=== PATIENT | female | born 1995 | race Caucasian/White ===

== ENCOUNTER 2018-10-08 10:15 | Emergency (ER) | payer OTHER ==
[2018-10-08 12:03] VITALS: BP 124/62
--- NOTE | 2018-10-08 12:05 | UC ---
Complaint Female HPI - HPI Summary HPI Summary: 23 y/o female presents to the urgent care c/o frequency and burning on urination w/ lower back pain for the past 2 days. Pt reports she took Metronidazole PO and Pyridium she had left over yesterday to alleviate symptoms. Pt states she got her period yesterday. Pain is 8/10 with urination. Pt denies fever, flnak pain, abdominal pain, SOB, chest pain, SHERMAN, N/V/D, vaginal discharge. - History Of Current Complaint Chief Complaint: UCBackPain Stated Complaint: BACK PAIN CHILLS Time Seen by Provider: 10/08/18 11:45 Hx Obtained From: Patient Hx Last Menstrual Period: yesterday ?: No Onset/Duration: Gradual Onset, Lasting Days - 2 days, Still Present, Worse Since - today Timing: Intermittent Severity Initially: Mild Severity Currently: Moderate Pain Intensity: 8 Character: Burning Aggravating Factor(s): Urination, Other - lower back pain Alleviating Factor(s): Meds - took Azo and Metronidazole PO yesterday Associated Signs And Symptoms: Positive: Back Pain - lower back pain. Negative : Fever, Vaginal Discharge, Nausea, Vomiting(# Of Episodes =), Genital Swelling , Genital Blisters - Risk Factors Ectopic Risk Factor: Negative Ovarian Torsion Risk Factor: Negative - Allergies/Home Medications Allergies/Adverse Reactions: Allergies Allergy/AdvReac Type Severity Reaction Status Date / Time No Known Allergies Allergy Verified 07/28/16 19:53 Home Medications: Home Medications Lo Ogestrel Oc 10/08/18 [History] PMH/Surg Hx/FS Hx/Imm Hx Previously Healthy: Yes - Pt denies PMHX - Surgical History Surgical History: None - Family History Known Family History: Positive: None - Pt denies FmHX, Other - No FHx kidney stones - Social History Occupation: Student Lives: With Family Alcohol Use: Occasionally Substance Use Type: None Smoking Status (MU): Former Smoker Review of Systems All Other Systems Reviewed And Are Negative: Yes Constitutional: Positive: Negative Skin: Positive: Negative Eyes: Positive: Negative ENT: Positive: Negative Respiratory: Positive: Negative Cardiovascular: Positive: Negative Gastrointestinal: Positive: Negative Genitourinary: Positive: Dysuria, Frequency, Urgency Motor: Positive: Negative Neurovascular: Positive: Negative Musculoskeletal: Positive: Other: - lower back pain Neurological: Positive: Negative Psychological: Positive: Negative Is Patient Immunocompromised?: No Physical Exam - Summary Physical Exam Summary: VITAL SIGNS: Reviewed. GENERAL: Patient is a well developed and nourished female who is sitting comfortable in the examining table. Patient is not in any acute respiratory distress. HEAD AND FACE: No signs of trauma. No ecchymosis, hematomas or skull depressions. No sinus tenderness. EYES: PERRLA, EOMI x 2, No injected conjunctiva, clear watery eyes, no nystagmus. No photophobia. EARS: Hearing grossly intact. Ear canals and tympanic membranes are within normal limits. MOUTH: pharynx with no erythema, no exudates,no palatal petechiae. no B/L tonsillar enlargement Uvula in midline. NECK: Supple, trachea is midline, no lymphadenopathy, no JVD, no carotid bruit, no c-spine tenderness, neck with full ROM. CHEST: Symmetric, no tenderness at palpation LUNGS: Clear to auscultation bilaterally. No wheezing or crackles. CVS: Regular rate and rhythm, S1 and S2 present, no murmurs or gallops appreciated. ABDOMEN: Soft, non-tender. No signs of distention. No rebound no guarding, and no masses palpated. Bowel sounds are normal. BACK:no scoliosis or lesions, non tender to palpation, No B/L CVA tenderness EXTREMITIES: FROM in all major joints, no edema, no cyanosis or clubbing. NEURO: Alert and oriented x 3. No acute neurological deficits. Speech is normal and follows commands. SKIN: Dry and warm Triage Information Reviewed: Yes Vital Signs: Initial Vital Signs Temp 98 F 10/08/18 11:53 Pulse 102 10/08/18 11:53 Resp 18 10/08/18 11:53 BP 124/62 10/08/18 11:53 Pulse Ox 100 10/08/18 11:53 Complaint Female Dx - Course Course Of Treatment: 23 y/o female presents to the urgent care c/o frequency and burning on urination w/ lower back pain for the past 2 days. Pt reports she took Metronidazole PO and Pyridium she had left over yesterday to alleviate symptoms. Pt states she got her period yesterday. Pain is 8/10 with urination. Pt denies fever, flnak pain, abdominal pain, SOB, chest pain, SHERMAN, N/V/D, vaginal discharge.Hx obtained. PE:WNL, No B/L CVA tenderness on palaption. Pt will be sent for Urine culture to the lab since Pt already took Azo. test: negative. Pt will be Tx as UTI w/ Ciprofloxacin PO and Pyridium PO to alleviate symptoms. Pt will be notified of results. Pt advised to increase hydrations and if she develops fever or flank pain despite taking antibiotics she should go to the ER for further management. Pt understood and agreed w/ plan of care. - Differential Dx/Diagnosis Differential Diagnosis/HQI/PQRI: Cervicitis, , Renal Colic, Ureteral Stone, Urinary Tract Infection Provider Diagnosis: UTI (urinary tract infection), Dysuria Discharge - Sign-Out/Discharge Documenting (check all that apply): Patient Departure - D/C home All imaging exams completed and their final reports reviewed: No Studies - Discharge Plan Condition: Stable Disposition: HOME Prescriptions: Ciprofloxacin TAB* [Cipro 500 MG TAB*] 500 mg PO BID #14 tab Phenazopyridine TAB* [Pyridium 100 mg TAB*] 100 mg PO TID #6 tab Patient Education Materials: Urinary Tract Infection in Women (ED) Referrals: Isaac Gonzalez [Primary Care Provider] - 3 Days Additional Instructions: 1- Please take Ciprofloxacin PO x 7 days. Pyridium 100 mg PO TID x 2 days to alleviate urinary symptoms. Increase increase fluid intake. drink cranberry juice. 2- Since you took Azo tabs Urine was sent for culture if any abnormality, you will be notified for further treatment. You will be treated prophylactically for UTI 3-If symptoms do not improve please return to the urgent care or f/u with PCP in 3 days. 4- If you develop fever, severe flank pain despite taking antibiotics please go immediately to the ER for further management - Billing Disposition and Condition Condition: STABLE Disposition: Home
[2018-10-08] MEDS: Ketorolac INJ* 30 MG/ML 1 ML VIAL IM ONE (12:19)
== END 2018-10-08 12:53 | disposition home or self-care (01) ==
LOC: UCCORT 10:15
DX: N39.0 Urinary tract infection, site not specified (principal); B96.20 Unspecified Escherichia coli [E. coli] as the cause of diseases classified elsewhere; R30.0 Dysuria; Z20.828 Contact with and (suspected) exposure to other viral communicable diseases; Z87.891 Personal history of nicotine dependence
CPT/HCPCS: 84702; 87077; 87086; 87186; 96372; 99212; G0463; J1885

== ENCOUNTER 2018-12-13 07:33 | Emergency (ER) | payer OTHER ==
[2018-12-13 07:52] VITALS: BP 115/64
--- NOTE | 2018-12-13 08:02 | UC ---
Ear Complaint HPI - HPI Summary HPI Summary: 23-year-old female presents with onset of right ear pain this morning. Associated with to 3 days of mild nasal congestion and runny nose. Denies fever , chills, tinnitus, vertigo, drainage, sore throat, or cough. - History of Current Complaint Chief Complaint: UCEar Stated Complaint: RIGHT EAR CONCERN Time Seen by Provider: 12/13/18 08:00 Hx Obtained From: Patient Hx Last Menstrual Period: 11/29/18 Pain Intensity: 3 - Allergies/Home Medications Allergies/Adverse Reactions: Allergies Allergy/AdvReac Type Severity Reaction Status Date / Time No Known Allergies Allergy Verified 12/13/18 07:52 PMH/Surg Hx/FS Hx/Imm Hx Previously Healthy: Yes - Denies significant PMH - Surgical History Surgical History: None - Family History Known Family History: Positive: Non-Contributory - Social History Occupation: Employed Full-time Lives: With Family Alcohol Use: Occasionally Substance Use Type: None Smoking Status (MU): Former Smoker Review of Systems All Other Systems Reviewed And Are Negative: Yes Constitutional: Negative: Fever, Chills Skin: Negative: Rash Eyes: Negative: Drainage, Eye Redness ENT: Positive: Ear Ache, Nasal Discharge, Sinus Congestion. Negative: Sore Throat, Sinus Pain/Tenderness Respiratory: Negative: Shortness Of Breath, Cough Cardiovascular: Negative: Palpitations, Chest Pain Gastrointestinal: Negative: Abdominal Pain, Vomiting, Diarrhea, Nausea Genitourinary: Positive: Negative Musculoskeletal: Positive: Negative Neurological: Positive: Negative Is Patient Immunocompromised?: No Physical Exam - Summary Physical Exam Summary: GENERAL APPEARANCE: Well developed, well nourished, alert and cooperative, and appears to be in no acute distress. EYES: Conjunctiva clear. No drainage. Vision is grossly intact. EARS: External auditory canals clear. Left TM opaque with good cone of light. Right TM erythematous with effusion. Hearing grossly intact. NOSE: No nasal discharge. THROAT: Pharynx normal. No tonsilar inflammation, swelling, exudate, or lesions. Uvula midline. Oral cavity normal. Teeth and gingiva in good general condition. NECK: Neck supple, non-tender without lymphadenopathy. CARDIAC: Normal S1 and S2. No S3, S4 or murmurs. Rhythm is regular. There is no peripheral edema, cyanosis or pallor. Extremities are warm and well perfused. Capillary refill is less than 2 seconds. Peripheral pulses intact. LUNGS: Clear to auscultation without rales, rhonchi, wheezing or diminished breath sounds. ABDOMEN: Positive bowel sounds. Soft, nondistended, nontender. No guarding or rebound. No masses or hepatosplenomegally. MUSKULOSKELETAL: ROM intact to all extremities. No joint erythema or tenderness. Normal muscular development. Normal gait. SKIN: Skin normal color, texture and turgor with no lesions or eruptions. Triage Information Reviewed: Yes Vital Signs: Initial Vital Signs Temp 97.2 F 12/13/18 07:50 Pulse 78 12/13/18 07:50 Resp 18 12/13/18 07:50 BP 115/64 12/13/18 07:50 Pulse Ox 99 12/13/18 07:50 Vital Signs Reviewed: Yes Ear Complaint Course/Dx - Course Course Of Treatment: 23-year-old female presents with onset of right ear pain this morning. Associated with to 3 days of mild nasal congestion and runny nose. Denies fever , chills, tinnitus, vertigo, drainage, sore throat, or cough. Afebrile. Vital signs stable. Exam was remarkable for right TM erythema with effusion. Will treat for right otitis media with effusion with amoxicillin 875 mg twice a day 10 days. She is to follow-up with a primary care provider in 2 weeks for recheck of the ear, sooner if symptoms do not improve. Despite her guidance and warning symptoms reviewed with the patient. Verbalizes understanding agrees with plan of care. - Differential Dx/Diagnosis Differential Diagnosis/HQI/PQRI: Otitis Externa, Otitis Media, Perforated TM, URI Provider Diagnosis: Right otitis media with effusion Discharge - Sign-Out/Discharge Documenting (check all that apply): Patient Departure All imaging exams completed and their final reports reviewed: No Studies - Discharge Plan Condition: Stable Disposition: HOME Prescriptions: Amoxicillin PO (*) [Amoxicillin 875 MG (*)] 875 mg PO BID #20 tab Patient Education Materials: Earache (ED) Referrals: Isaac Gonzalez [Primary Care Provider] - 2 Weeks Additional Instructions: Take amoxicillin 875 mg 1 cap twice a day with food for 10 days to treat your right ear infection. Use acetaminophen (Tylenol) or ibuprofen (Advil, Motrin) according to directions as needed for pain. Follow up with your primary care provider in 2 weeks to have the ear rechecked, sooner if no improvement in symptoms. Seek immediate medical attention if you develop fever greater than 100.5 F, you have pain not managed with pain medication, drainage or bleeding from the ear, loss of hearing, or any worsening of symptoms. - Billing Disposition and Condition Condition: STABLE Disposition: Home
== END 2018-12-13 08:13 | disposition home or self-care (01) ==
LOC: UCCORT 07:33
DX: H65.91 Unspecified nonsuppurative otitis media, right ear (principal); R09.81 Nasal congestion; R09.89 Other specified symptoms and signs involving the circulatory and respiratory systems; Z87.891 Personal history of nicotine dependence
CPT/HCPCS: 99212; G0463